=== PATIENT | male | born 1970 | race Caucasian/White ===

== ENCOUNTER 2017-08-08 18:04 | Emergency (ER) | payer BC ==
[2017-08-08 19:06] VITALS: BP 145/91
[2017-08-08 19:07] LABS: CHLORIDE,CL 99 mmol/L (101-111); SODIUM,NA 137 mmol/L (135-145)
--- NOTE | 2017-08-08 19:49 | EDM.PDOC ---
ED HPI GENERAL MEDICAL PROBLEM - General Chief Complaint: Lower Extremity Injury/Pain Stated Complaint: LEG PAIN [phone] Time Seen by Provider: 08/08/17 19:00 Source of Information: Reports: Patient History Limitations: Reports: No Limitations - History of Present Illness INITIAL COMMENTS - FREE TEXT/NARRATIVE: ED with complaint of left leg pain and swelling, started this am and wosening through day, pain intermittent at times, worse with weight bearing. Patient hx of DM, not on any medication currently due to side effects, Notes blood sugars when he checks have been 300's. Drives semi daily. Family hx Factor V deficiency. No previous blood clots himself. On no current medications, No respiratory symptoms. Hx hypertension but does not check blood pressures. Onset: Today Left Lower Leg Pain Score (Numeric/FACES): 6 - Related Data Allergies Allergy/AdvReac Type Severity Reaction Status Date / Time No Known Allergies Allergy Verified 08/08/17 18:28 Home Meds: Home Meds NK [No Known Home Meds] 0 mg PO DAILY 08/08/17 [History] Past Medical History HEENT History: Reports: Impaired Vision Cardiovascular History: Reports: Hypertension Musculoskeletal History: Reports: Fracture Endocrine/Metabolic History: Reports: Diabetes, Type II Social & Family History - Family History Family Medical History: Noncontributory - Tobacco Use Smoking Status *Q: Never Smoker Second Hand Smoke Exposure: No - Caffeine Use Caffeine Use: Reports: Coffee - Recreational Drug Use Recreational Drug Use: No Review of Systems - Review of Systems Review Of Systems: ROS reveals no pertinent complaints other than HPI. ED EXAM, GENERAL - Physical Exam Exam: See Below Exam Limited By: No Limitations General Appearance: Alert, No Apparent Distress Eye Exam: Bilateral Eye: EOMI Ears: Normal External Exam, Hearing Grossly Normal Nose: Normal Inspection Throat/Mouth: Normal Inspection Head: Atraumatic, Normocephalic Neck: Normal Inspection, Full Range of Motion Respiratory/Chest: No Respiratory Distress, Lungs Clear, Normal Breath Sounds Cardiovascular: Normal Peripheral Pulses, Regular Rate, Rhythm Peripheral Pulses: 2+: Dorsalis Pedis (L) GI/Abdominal: Normal Bowel Sounds, Soft. No: Tender Back Exam: Full Range of Motion Extremities: Normal Range of Motion, Umair's Sign, Leg Pain, Other (right calf 16" left calf 16.6"). No: Pallor, Redness Neurological: Alert, Oriented, Normal Cognition Psychiatric: Normal Affect, Normal Mood Skin Exam: Warm, Dry, Intact, Normal Color Course - Vital Signs Last Recorded V/S: Last Vital Signs Temp 98.0 F 08/08/17 19:05 Pulse 87 08/08/17 19:05 Resp 18 08/08/17 19:05 BP 145/91 H 08/08/17 19:05 Pulse Ox 97 08/08/17 19:05 - Orders/Labs/Meds Orders: Active Orders 24 hr Category Date Time Status UA W/MICROSCOPIC [URIN] Stat Lab 08/08/17 19:12 Uncollected Labs: Laboratory Tests 08/08/17 08/08/17 08/08/17 Range/Units 18:44 18:44 18:44 WBC 8.4 (5.0-10.0) 10^3/uL RBC 4.78 (4.6-6.2) 10^6/uL Hgb 17.0 (14.0-18.0) g/dL Hct 46.0 (40.0-54.0) % MCV 96.2 (80-100) fL MCH 35.6 H (27.0-34.0) pg MCHC 37.0 H (33.0-35.0) g/dL Plt Count 146 L (150-450) 10^3/uL Neut % (Auto) 63.5 (42.2-75.2) % Lymph % (Auto) 26.5 (20.5-50.1) % [place] % (Auto) 8.1 H (2-8) % Eos % (Auto) 1.4 (1.0-3.0) % Baso % (Auto) 0.5 (0.0-1.0) % PT 9.9 (9.0-12.0) SEC INR 1.0 (0.9-1.2) D-Dimer, Quantitative < 100 (0-400) ng/mL Sodium 137 (135-145) mmol/L Potassium 4.5 (3.6-5.0) mmol/L Chloride 99 L (101-111) mmol/L Carbon Dioxide 30.0 (21.0-31.0) mmol/L Anion Gap 12.5 BUN 18 (7-18) mg/dL Creatinine 0.8 (0.6-1.3) mg/dL Est Cr Clr Drug Dosing 132.72 mL/min Estimated GFR (MDRD) > 60 BUN/Creatinine Ratio 22.50 Glucose 300 H (74-105) mg/dL Calcium 9.4 (8.4-10.2) mg/dl Total Bilirubin 1.2 H (0.2-1.0) mg/dL AST 38 (10-42) IU/L ALT 59 (10-60) IU/L Alkaline Phosphatase 58 (42-121) IU/L Total Protein 6.8 (6.7-8.2) g/dl Albumin 4.2 (3.2-5.5) g/dl Globulin 2.6 Albumin/Globulin Ratio 1.62 - Re-Assessments/Exams Free Text/Narrative Re-Assessment/Exam: 08/08/17 19:50 [place] ultrasound unavailable. [facility] ER. Dr. Rai accepting of patient for further evaluation. Tx via private car. Discussion with patient and regarding concerns of DVT and importance of urgent follow up at [facility]. 08/08/17 19:52 Departure - Departure Time of Disposition: 19:44 Disposition: DC/Tfer to Acute Hospital 02 Condition: Undetermined Clinical Impression: Left leg pain, Family history of factor V Leiden mutation Hyperglycemia due to type 2 diabetes mellitus Qualifiers: Diabetes mellitus nursing home insulin use: without nursing home use Qualified Code(s ): E11.65 - Type 2 diabetes mellitus with hyperglycemia - Discharge Information Instructions: Deep Vein Thrombosis Referrals: Simon Phelps DRUG ABUSE COUNSELOR [Primary Care Provider] - Forms: ED Department Discharge - My Orders Last 24 Hours: My Active Orders 08/08/17 19:12 UA W/MICROSCOPIC [URIN] Stat - Assessment/Plan Last 24 Hours: My Active Orders 08/08/17 19:12 UA W/MICROSCOPIC [URIN] Stat
== END 2017-08-08 20:06 ==
LOC: DL.ED 18:04
DX: M79.662 Pain in left lower leg (principal); E11.65 Type 2 diabetes mellitus with hyperglycemia
CPT/HCPCS: 36415; 80053; 85025; 85379; 85610; 99284

== ENCOUNTER 2017-11-13 18:56 | Emergency (ER) | payer BC ==
--- NOTE | 2017-11-13 20:16 | EDM.PDOC ---
ED HPI GENERAL MEDICAL PROBLEM - General Chief Complaint: Upper Extremity Injury/Pain Stated Complaint: INJURED L HAND [phone] Time Seen by Provider: 11/13/17 19:55 Source of Information: Reports: Patient History Limitations: Reports: No Limitations - History of Present Illness INITIAL COMMENTS - FREE TEXT/NARRATIVE: injured left hand while working on grain bin few days ago, . continued pain and 4th knuckle looks "funny" Duration: Day(s): Location: Reports: Upper Extremity, Left Left Hand Pain Score (Numeric/FACES): 4 - Related Data Allergies Allergy/AdvReac Type Severity Reaction Status Date / Time No Known Allergies Allergy Verified 11/13/17 20:16 Home Meds: Home Meds NK [No Known Home Meds] 0 mg PO DAILY 08/08/17 [History] Past Medical History HEENT History: Reports: Impaired Vision Cardiovascular History: Reports: Hypertension Musculoskeletal History: Reports: Fracture Endocrine/Metabolic History: Reports: Diabetes, Type II Social & Family History - Family History Family Medical History: Noncontributory - Tobacco Use Smoking Status *Q: Never Smoker Second Hand Smoke Exposure: No - Caffeine Use Caffeine Use: Reports: Coffee - Recreational Drug Use Recreational Drug Use: No Review of Systems - Review of Systems Review Of Systems: ROS reveals no pertinent complaints other than HPI. ED EXAM, GENERAL - Physical Exam Exam: See Below Exam Limited By: No Limitations General Appearance: Alert, No Apparent Distress Ears: Normal External Exam Nose: Normal Inspection Throat/Mouth: Normal Inspection Head: Atraumatic, Normocephalic Neck: Normal Inspection Respiratory/Chest: No Respiratory Distress Cardiovascular: Regular Rate, Rhythm Extremities: Other (mild swelling to left hand, no gross deformity. mild tenderness with palpation over 4th metacarpal, 3mm abrasion to left 2nd distal metacarpal. ) Neurological: Alert, Oriented, Normal Cognition Psychiatric: Normal Affect, Normal Mood Skin Exam: Warm, Dry, Intact ED TRAUMA EXTREMITY PROCEDURES - Splinting Left Upper Extremity Splint Site: left hand Pre-Procedure NV Status: Normal Post-Procedure NV Status: Normal Splint Material: Metal Splint Design: Volar Provider Post-Splint Application NV Check: NV Status Normal, Good Position Complications: No Course - Vital Signs Last Recorded V/S: Last Vital Signs Temp 98.4 F 11/13/17 20:13 Pulse 101 H 11/13/17 20:13 Resp 18 11/13/17 20:13 BP 161/92 H 11/13/17 20:19 Pulse Ox 95 11/13/17 20:13 - Radiology Interpretation Free Text/Narrative:: Left hand xray: oblique fracture 4th metacarpal (original VRad reading was negative.) Departure - Departure Time of Disposition: 20:12 Disposition: Home, Self-Care 01 Condition: Good Clinical Impression: Fracture of metacarpal bone Qualifiers: Encounter type: initial encounter Metacarpal bone: fourth Fracture type: closed Metacarpal location: shaft Fracture alignment: nondisplaced Laterality: left Qualified Code(s): S62.355A - Nondisplaced fracture of shaft of fourth metacarpal bone, left hand, initial encounter for closed fracture - Discharge Information Instructions: Metacarpal Fracture, [id number] Referrals: Simon Phelps NP [Primary Care Provider] - Forms: ED Department Discharge Additional Instructions: tylenol or ibuprofen for discomfort follow up in one week if continued pain for re-xray of hand metal splint to hand, no heavy lifting
[2017-11-13 20:19] VITALS: BP 161/92
== END 2017-11-13 20:22 | disposition home or self-care (01) ==
LOC: DL.ED 18:56
DX: S62.355A Nondisplaced fracture of shaft of fourth metacarpal bone, left hand, initial encounter for closed fracture (principal); I10 Essential (primary) hypertension; E11.9 Type 2 diabetes mellitus without complications; Z79.899 Other long term (current) drug therapy; W22.8XXA Striking against or struck by other objects, initial encounter; Y93.89 Activity, other specified; Y99.0 Civilian activity done for income or pay
CPT/HCPCS: 29125; 73130-LT; 99283

== ENCOUNTER 2017-12-28 12:04 | Emergency (ER) | payer BC ==
[2017-12-28 13:25] VITALS: BP 169/91
[2017-12-28 13:40] LABS: CHLORIDE,CL 100 mmol/L (101-111); SODIUM,NA 135 mmol/L (135-145)
--- NOTE | 2017-12-28 14:21 | EDM.PDOC ---
ED HPI GENERAL MEDICAL PROBLEM - General Chief Complaint: Lower Extremity Injury/Pain Stated Complaint: [id number] SWELLING IN LEFT LEG Time Seen by Provider: 12/28/17 13:48 Source of Information: Reports: Patient, RN, RN Notes Reviewed History Limitations: Reports: No Limitations - History of Present Illness INITIAL COMMENTS - FREE TEXT/NARRATIVE: Pt presents to the ER with c/o a wound to the bottom of his foot with pain radiating up the left leg. The wound has been there for about 3 months he states. He states he has seen podiatry for the wound on his foot, but has not had follow up. He states the pain radiating up the leg began yesterday. He states he has noticed more swelling and redness around the wound and the pain has been radiating up the leg. Pt denies fever or chills, N/V/D, chest pains, or SOB. Onset: Gradual Left Leg Pain Score (Numeric/FACES): 9 - Related Data Allergies Allergy/AdvReac Type Severity Reaction Status Date / Time No Known Allergies Allergy Verified 11/13/17 20:16 Home Meds: Home Meds Fenofibrate Nanocrystallized [Fenofibrate] 145 mg PO DAILY 12/28/17 [History] Gabapentin [Neurontin] 300 mg PO TID 12/28/17 [History] Levothyroxine 25 mcg PO DAILY 12/28/17 [History] Lisinopril 10 mg PO DAILY 12/28/17 [History] atorvaSTATin Calcium [Atorvastatin Calcium] 20 mg PO DAILY 12/28/17 [History] glipiZIDE [Glucotrol XL] 10 mg PO DAILY 12/28/17 [History] metFORMIN HCl [Metformin HCl] 500 mg PO BID 12/28/17 [History] Past Medical History HEENT History: Reports: Impaired Vision Cardiovascular History: Reports: Hypertension Musculoskeletal History: Reports: Fracture Endocrine/Metabolic History: Reports: Diabetes, Type II Hematologic History: Reports: None Social & Family History - Family History Family Medical History: Noncontributory - Tobacco Use Smoking Status *Q: Never Smoker Second Hand Smoke Exposure: No - Caffeine Use Caffeine Use: Reports: None - Recreational Drug Use Recreational Drug Use: No Review of Systems - Review of Systems Review Of Systems: ROS reveals no pertinent complaints other than HPI. ED EXAM, GENERAL - Physical Exam Exam: See Below Exam Limited By: No Limitations General Appearance: Alert, WD/WN, No Apparent Distress Eye Exam: Bilateral Eye: EOMI, Normal Inspection Ears: Normal External Exam, Hearing Grossly Normal Nose: Normal Inspection Throat/Mouth: Normal Inspection, Normal Voice, No Airway Compromise Head: Atraumatic, Normocephalic Neck: Normal Inspection, Supple, Non-Tender, Full Range of Motion Respiratory/Chest: No Respiratory Distress, Lungs Clear, Normal Breath Sounds, No Accessory Muscle Use, Chest Non-Tender Cardiovascular: Normal Peripheral Pulses, Regular Rate, Rhythm, No Edema, No Gallop, No JVD, No Murmur, No Rub Peripheral Pulses: 2+: Radial (L), Radial (R), Dorsalis Pedis (L), Dorsalis Pedis (R) GI/Abdominal: Normal Bowel Sounds, Soft, Non-Tender, No Organomegaly, No Distention, No Abnormal Bruit, No Mass (Male) Exam: Deferred Rectal (Males) Exam: Deferred Back Exam: Normal Inspection, Full Range of Motion, NT Extremities: Normal Inspection, Normal Range of Motion, Non-Tender, No Pedal Edema, Normal Capillary Refill, Leg Pain (left leg painful from the foot up the back of the left calf) Neurological: Alert, Oriented, CN II-XII Intact, Normal Cognition, Normal Gait, Normal Reflexes, Sensory/Motor Deficit (diabetic neuropathy, numbness to the feet) Psychiatric: Normal Affect, Normal Mood Skin Exam: Warm, Dry, No Rash, Wound/Incision (quarter sized wound with dry hard callous surrounding. Necrotic odor, and small amounts of black necrotic tissue noted within the wound. ) Lymphatic: No Adenopathy ED TRAUMA EXTREMITY PROCEDURES - Additional/Other Procedure(s) Other (Free Text) Procedure(s): Calloused area around the wound was debrided with a 15 scalpel. Course - Vital Signs Last Recorded V/S: Last Vital Signs Temp 98.7 F 12/28/17 13:20 Pulse 110 H 12/28/17 13:20 Resp 12 12/28/17 13:20 BP 169/91 H 12/28/17 13:20 Pulse Ox 97 12/28/17 13:20 - Orders/Labs/Meds Labs: Laboratory Tests 12/28/17 12/28/17 Range/Units 13:13 13:13 WBC 11.3 H (5.0-10.0) 10^3/uL RBC 5.19 (4.6-6.2) 10^6/uL Hgb 18.0 (14.0-18.0) g/dL Hct 49.5 (40.0-54.0) % MCV 95.4 (80-100) fL MCH 34.7 H (27.0-34.0) pg MCHC 36.4 H (33.0-35.0) g/dL Plt Count 166 (150-450) 10^3/uL Neut % (Auto) 80.0 H (42.2-75.2) % Lymph % (Auto) 11.4 L (20.5-50.1) % [place] % (Auto) 7.9 (2-8) % Eos % (Auto) 0.5 L (1.0-3.0) % Baso % (Auto) 0.2 (0.0-1.0) % Sodium 135 (135-145) mmol/L Potassium 4.3 (3.6-5.0) mmol/L Chloride 100 L (101-111) mmol/L Carbon Dioxide 28.0 (21.0-31.0) mmol/L Anion Gap 11.3 BUN 12 (7-18) mg/dL Creatinine 0.7 (0.6-1.3) mg/dL Est Cr Clr Drug Dosing 151.68 mL/min Estimated GFR (MDRD) > 60 BUN/Creatinine Ratio 17.14 Glucose 247 H (74-105) mg/dL Calcium 9.2 (8.4-10.2) mg/dl Total Bilirubin 1.9 H (0.2-1.0) mg/dL AST 33 (10-42) IU/L ALT 49 (10-60) IU/L Alkaline Phosphatase 55 (42-121) IU/L Total Protein 7.6 (6.7-8.2) g/dl Albumin 4.2 (3.2-5.5) g/dl Globulin 3.4 Albumin/Globulin Ratio 1.24 - Radiology Interpretation Free Text/Narrative:: left foot xray: IMPRESSION: Normal left foot x-rays. Thank you for allowing us to participate in the care of your patient. Dictated and Authenticated by: Abi Frost MD 12/28/2017 2:00 PM Central Time ([place] & [place]) See Rad report Departure - Departure Time of Disposition: 14:19 Disposition: Home, Self-Care 01 Condition: Fair Clinical Impression: Diabetic foot ulcer Qualifiers: Diabetic foot ulcer location: other Diabetes mellitus type: type 2 Laterality: left Non-pressure ulcer stage: with necrosis of muscle Qualified Code(s): E11.621 - Type 2 diabetes mellitus with foot ulcer - Discharge Information Instructions: Diabetes and Foot Care, Diabetes Mellitus and Skin Care, Type 2 Diabetes Mellitus, Self Care, Adult, [id number] Referrals: Simon Phelps NP [Primary Care Provider] - Forms: ED Department Discharge Additional Instructions: Follow up with your primary care facility Make an appointment to be seen by podiatry or a diabetic foot clinic RX: Clindamycin and Augmentin
== END 2017-12-28 14:38 | disposition home or self-care (01) ==
LOC: DL.ED 12:04
DX: E11.621 Type 2 diabetes mellitus with foot ulcer (principal); I10 Essential (primary) hypertension; Z79.84 Long term (current) use of oral hypoglycemic drugs; Z79.899 Other long term (current) drug therapy
CPT/HCPCS: 36415; 73630-LT; 80053; 85025; 99282

== ENCOUNTER 2018-02-08 08:22 | Emergency (ER) | payer BC ==
--- NOTE | 2018-02-08 09:30 | EDM.PDOC ---
ED HPI GENERAL MEDICAL PROBLEM - General Chief Complaint: Lower Extremity Injury/Pain Stated Complaint: [id number] LEFT LEG BURNING Time Seen by Provider: 02/08/18 09:20 Source of Information: Reports: Patient History Limitations: Reports: No Limitations - History of Present Illness INITIAL COMMENTS - FREE TEXT/NARRATIVE: This 47 yo male patient reports to the ED with left leg pain and left great toe erythema. The patient reports he has seen podiatry (2-3 weeks ago) and has been on antibiotics (2 weeks ago), but continues to have problems. The patient reports he noticed increased swelling and pain 2 days ago. Onset Date: 02/07/18 Duration: Constant, Getting Worse Location: Reports: Lower Extremity, Left Quality: Reports: Ache, Burning, Sharp Severity: Severe Improves with: Reports: None Worsens with: Reports: None Context: Reports: Other Associated Symptoms: Reports: No Other Symptoms Left Leg Pain Score (Numeric/FACES): 8 - Related Data Allergies Allergy/AdvReac Type Severity Reaction Status Date / Time No Known Allergies Allergy Verified 02/08/18 10:01 Home Meds: Home Meds Fenofibrate Nanocrystallized [Fenofibrate] 145 mg PO DAILY 12/28/17 [History] Gabapentin [Neurontin] 300 mg PO TID 12/28/17 [History] Levothyroxine 25 mcg PO DAILY 12/28/17 [History] Lisinopril 10 mg PO DAILY 12/28/17 [History] atorvaSTATin Calcium [Atorvastatin Calcium] 20 mg PO DAILY 12/28/17 [History] glipiZIDE [Glucotrol XL] 10 mg PO DAILY 12/28/17 [History] metFORMIN HCl [Metformin HCl] 500 mg PO BID 12/28/17 [History] Past Medical History HEENT History: Reports: Impaired Vision Cardiovascular History: Reports: Hypertension Musculoskeletal History: Reports: Fracture Endocrine/Metabolic History: Reports: Diabetes, Type II Hematologic History: Reports: None Social & Family History - Family History Family Medical History: Noncontributory - Caffeine Use Caffeine Use: Reports: None Review of Systems - Review of Systems Review Of Systems: ROS reveals no pertinent complaints other than HPI. ED EXAM, GENERAL - Physical Exam Exam: See Below Exam Limited By: No Limitations General Appearance: Alert, WD/WN, Moderate Distress Eye Exam: Bilateral Eye: EOMI, Normal Inspection, PERRL Ears: Normal External Exam, Normal Canal, Hearing Grossly Normal, Normal TMs Nose: Normal Inspection, Normal Mucosa, No Blood Throat/Mouth: Normal Inspection, Normal Lips, Normal Teeth, Normal Gums, Normal Oropharynx, Normal Voice, No Airway Compromise Head: Atraumatic, Normocephalic Neck: Normal Inspection, Supple, Non-Tender, Full Range of Motion Respiratory/Chest: No Respiratory Distress, Lungs Clear, Normal Breath Sounds, No Accessory Muscle Use, Chest Non-Tender Cardiovascular: Normal Peripheral Pulses, Regular Rate, Rhythm, No Edema, No Gallop, No JVD, No Murmur, No Rub GI/Abdominal: Normal Bowel Sounds, Soft, Non-Tender, No Organomegaly, No Distention, No Abnormal Bruit, No Mass (Male) Exam: Deferred Rectal (Males) Exam: Deferred Extremities: Normal Range of Motion, Normal Capillary Refill, Redness (left great toe (ulcer on plantar surface as well as on great toe phalanx) with erythema of great toe through MTP joint.) Neurological: Alert, Oriented, CN II-XII Intact, Normal Cognition Psychiatric: Normal Affect, Normal Mood Skin Exam: Erythema (left great toe ) Lymphatic: No Adenopathy Course - Vital Signs Last Recorded V/S: Last Vital Signs Temp 37.2 C 02/08/18 09:05 Pulse 104 H 02/08/18 09:05 Resp 16 02/08/18 09:05 BP 150/93 H 02/08/18 09:05 Pulse Ox 99 02/08/18 09:05 - Orders/Labs/Meds Orders: Active Orders 24 hr Category Date Time Status CULTURE BLOOD [BC] Stat Lab 02/08/18 09:38 Received Vancomycin 2 gm Med 02/08/18 11:06 Ordered Sodium Chloride 0.9% [Normal Saline] 500 ml IV ONETIME Medication Orders Vancomycin HCl 2 gm/ Sodium (Chloride) 500 mls @ 334 mls/hr IV ONETIME ONE Stop: 02/08/18 12:35 Last Admin: 02/08/18 11:23 Dose: 334 mls/hr Labs: Laboratory Tests 02/08/18 02/08/18 02/08/18 Range/Units 09:38 09:38 09:38 WBC 11.3 H (5.0-10.0) 10^3/uL RBC 4.60 (4.6-6.2) 10^6/uL Hgb 16.2 D (14.0-18.0) g/dL Hct 43.8 (40.0-54.0) % MCV 95.2 (80-100) fL MCH 35.2 H (27.0-34.0) pg MCHC 37.0 H (33.0-35.0) g/dL Plt Count 164 (150-450) 10^3/uL Neut % (Auto) 80.2 H (42.2-75.2) % Lymph % (Auto) 9.7 L (20.5-50.1) % [place] % (Auto) 9.3 H (2-8) % Eos % (Auto) 0.6 L (1.0-3.0) % Baso % (Auto) 0.2 (0.0-1.0) % Sodium 135 L (138-146) mmol/L Potassium 3.9 (3.5-4.9) mmol/L Chloride 97 L (98-109) mmol/L Carbon Dioxide 29 (24-29) mmol/L Anion Gap 12.9 BUN 13 (8-26) mg/dL Creatinine 0.8 (0.6-1.3) mg/dL Est Cr Clr Drug Dosing TNP Estimated GFR (MDRD) > 60 BUN/Creatinine Ratio 16.25 Glucose 316 H (70-105) mg/dL Lactic Acid 1.2 (0.5-2.2) mmol/L Calcium 1.1 Total Bilirubin 1.8 H (0.2-1.0) mg/dL AST 23 (10-42) IU/L ALT 29 (10-60) IU/L Alkaline Phosphatase 64 (42-121) IU/L Total Protein 6.9 (6.7-8.2) g/dl Albumin 3.6 (3.2-5.5) g/dl Globulin 3.3 Albumin/Globulin Ratio 1.09 Meds: Medications Generic Name Dose Route Start Last Admin Trade Name Freq PRN Reason Stop Dose Admin Vancomycin HCl 2 gm/ Sodium 500 mls @ 334 mls/hr 02/08/18 11:06 02/08/18 11: 23 Chloride IV 02/08/18 12:35 334 mls/hr ONETIME ONE Administration Departure - Departure Time of Disposition: 12:06 Disposition: Home, Self-Care 01 Condition: Fair Clinical Impression: Diabetic foot ulcer Qualifiers: Diabetic foot ulcer location: other Diabetes mellitus type: type 2 Laterality: left Non-pressure ulcer stage: with necrosis of muscle Qualified Code(s): E11.621 - Type 2 diabetes mellitus with foot ulcer - Discharge Information Instructions: Diabetes Mellitus and Foot Care, Cellulitis, Adult, [id number] Forms: ED Department Discharge Care Plan Goals: The patient was advised of the examination, lab and x-ray results during the visit. The patient was given an IV dose of Vancomycin while in the ED. The patient was discharged with a script for Keflex (500 mg) to take 1 by mouth 4 times per day for 10 days and Bactrim DS to take 1 by mouth 2 times per day for 10 days. If the patient has any additional symptoms or concerns, the patient should follow-up with his primary care facility, with his taxicab starter or return to the emergency department. - My Orders Last 24 Hours: My Active Orders 02/08/18 09:38 CULTURE BLOOD [BC] Stat 02/08/18 11:06 Vancomycin 2 gm Sodium Chloride 0.9% [Normal Saline] 500 ml IV ONETIME - Assessment/Plan Last 24 Hours: My Active Orders 02/08/18 09:38 CULTURE BLOOD [BC] Stat 02/08/18 11:06 Vancomycin 2 gm Sodium Chloride 0.9% [Normal Saline] 500 ml IV ONETIME
[2018-02-08 09:50] LABS: CHLORIDE,CL 97 mmol/L (98-109); SODIUM,NA 135 mmol/L (138-146)
[2018-02-08 10:02] VITALS: BP 150/93
--- NOTE | 2018-02-08 10:15 | CR ---
Clinical history: 47-year-old diabetic male with "erythema" great toe. Interpretation: *Pronounced soft tissue swelling and what appears to be subcutaneous air (ulcer?). Atavistic first cuneiform minimal reactive arthritic change. No current signs of osteomyelitis. No foreign bodies, inflammatory periostitis, left foot fracture or dislocation. CONCLUSION: Abnormal great toe (see above)
[2018-02-08] MEDS: Vancomycin 2 GM in Sodium Chloride 0.9% 500 ML IV ONE (11:23)
== END 2018-02-08 13:01 | disposition home or self-care (01) ==
LOC: DL.ED 08:22
DX: E11.621 Type 2 diabetes mellitus with foot ulcer (principal); L97.523 Non-pressure chronic ulcer of other part of left foot with necrosis of muscle; I10 Essential (primary) hypertension; Z79.899 Other long term (current) drug therapy
CPT/HCPCS: 36415; 73630; 80053; 83605; 85025; 87040; 96365; 96366; 99284; J3370; J7040

== ENCOUNTER 2018-02-11 14:37 | Emergency (ER) | payer BC ==
--- NOTE | 2018-02-11 14:57 | EDM.PDOC ---
ED HPI GENERAL MEDICAL PROBLEM - General Chief Complaint: Lower Extremity Injury/Pain Stated Complaint: LEFT FOOT Time Seen by Provider: 02/11/18 14:57 Source of Information: Reports: Patient, Old Records, RN, RN Notes Reviewed History Limitations: Reports: No Limitations - History of Present Illness INITIAL COMMENTS - FREE TEXT/NARRATIVE: Pt c/o infection to left foot with redness, increased warmth, and pain spreading proximally from a chronic non-healing ulcer at the medial left MTPJ. Pt denies fever or chills. Yesterday a blister formed over the ulcer and today it popped and had foul smelling purulent drainage. Pt has seen a post anesthesia care unit nurse, but states the treatment hasn't helped. He has an appointment with a specialist in [place] 2 days from now. Onset: Other (Approx. 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: Other Medication(s) (Cephalexin and Bactrim) Left Feet Pain Score (Numeric/FACES): 7 - Related Data Allergies Allergy/AdvReac Type Severity Reaction Status Date / Time No Known Allergies Allergy Verified 02/11/18 14:41 Home Meds: Home Meds Fenofibrate Nanocrystallized [Fenofibrate] 145 mg PO DAILY 12/28/17 [History] Gabapentin [Neurontin] 300 mg PO TID 12/28/17 [History] Levothyroxine 25 mcg PO DAILY 12/28/17 [History] Lisinopril 10 mg PO DAILY 12/28/17 [History] atorvaSTATin Calcium [Atorvastatin Calcium] 20 mg PO DAILY 12/28/17 [History] glipiZIDE [Glucotrol XL] 10 mg PO DAILY 12/28/17 [History] metFORMIN HCl [Metformin HCl] 500 mg PO BID 12/28/17 [History] Past Medical History HEENT History: Reports: Impaired Vision Cardiovascular History: Reports: Hypertension Musculoskeletal History: Reports: Fracture Endocrine/Metabolic History: Reports: Diabetes, Type II Hematologic History: Reports: None Dermatologic History: Reports: Decubitus Ulcer (diabetic pressure ulcer left foot) Social & Family History - Family History Family Medical History: Noncontributory - Tobacco Use Smoking Status *Q: Never Smoker Second Hand Smoke Exposure: No - Caffeine Use Caffeine Use: Reports: None - Recreational Drug Use Recreational Drug Use: No - Living Situation & Occupation Living situation: Reports: , with Family Occupation: Employed Review of Systems - Review of Systems Review Of Systems: ROS reveals no pertinent complaints other than HPI. ED EXAM, GENERAL - Physical Exam Exam: See Below Exam Limited By: No Limitations General Appearance: Alert, WD/WN, No Apparent Distress Head: Atraumatic, Normocephalic Respiratory/Chest: No Respiratory Distress, Lungs Clear, Normal Breath Sounds, No Accessory Muscle Use, Chest Non-Tender Cardiovascular: Regular Rate, Rhythm Peripheral Pulses: 0: Posterior Tibial (L), Posterior Tibial (R), 1+: Dorsalis Pedis (L), Dorsalis Pedis (R) Extremities: Normal Capillary Refill, Joint Swelling (left 1st TMPJ and adj. soft tissue), Increased Warmth (left foot), Redness (left medial foot), Other ( 3 to 4cm diameter chronic appearing ulcer on left medial foot overlying the 1st MTPJ, with foul smelling purulent drainage) Neurological: Alert, Oriented, No Motor/Sensory Deficits Psychiatric: Normal Mood Course - Vital Signs Last Recorded V/S: Last Vital Signs Temp 36.1 C 02/11/18 14:41 Pulse 100 02/11/18 14:41 Resp 18 02/11/18 14:41 BP 166/94 H 02/11/18 14:41 Pulse Ox 97 02/11/18 14:41 - Orders/Labs/Meds Orders: Active Orders 24 hr Category Date Time Status Peripheral IV Care [RC] . DIRECTED Care 02/11/18 15:10 Active CULTURE BLOOD [BC] Stat Lab 02/11/18 15:21 Received CULTURE BLOOD [BC] Stat Lab 02/11/18 15:24 Received CULTURE WOUND + SMEAR [RM] Stat Lab 02/11/18 15:09 Results Sodium Chloride 0.9% [Saline Flush] Med 02/11/18 15:10 Active 10 ml FLUSH ASDIRECTED PRN Blood Culture x2 Reflex Set [OM.PC] Stat Oth 02/11/18 15:10 Ordered Peripheral IV Insertion Adult [OM.PC] Stat Oth 02/11/18 15:10 Ordered Medication Orders Sodium Chloride (Saline Flush) 10 ml FLUSH ASDIRECTED PRN PRN Reason: Keep Vein Open Last Admin: 02/11/18 15:34 Dose: 10 ml Labs: Laboratory Tests 02/11/18 02/11/18 02/11/18 Range/Units 15:21 15:21 15:21 WBC 14.1 H (5.0-10.0) 10^3/uL RBC 4.86 (4.6-6.2) 10^6/uL Hgb 17.0 (14.0-18.0) g/dL Hct 45.7 (40.0-54.0) % MCV 94.0 (80-100) fL MCH 35.0 H (27.0-34.0) pg MCHC 37.2 H (33.0-35.0) g/dL Plt Count 236 (150-450) 10^3/uL Neut % (Auto) 79.9 H (42.2-75.2) % Lymph % (Auto) 9.5 L (20.5-50.1) % [place] % (Auto) 8.8 H (2-8) % Eos % (Auto) 1.6 (1.0-3.0) % Baso % (Auto) 0.2 (0.0-1.0) % Sodium 133 L (135-145) mmol/L Potassium 3.1 L (3.6-5.0) mmol/L Chloride 93 L (101-111) mmol/L Carbon Dioxide 28.0 (21.0-31.0) mmol/L Anion Gap 15.1 BUN 17 (7-18) mg/dL Creatinine 0.8 (0.6-1.3) mg/dL Est Cr Clr Drug Dosing 132.72 mL/min Estimated GFR (MDRD) > 60 BUN/Creatinine Ratio 21.25 Glucose 231 H (74-105) mg/dL Calcium 9.1 (8.4-10.2) mg/dl Total Bilirubin 1.1 H (0.2-1.0) mg/dL AST 30 (10-42) IU/L ALT 28 (10-60) IU/L Alkaline Phosphatase 74 (42-121) IU/L C-Reactive Protein 18.7 H (0.0-1.3) mg/dL Total Protein 7.9 (6.7-8.2) g/dl Albumin 3.6 (3.2-5.5) g/dl Globulin 4.3 Albumin/Globulin Ratio 0.84 Meds: Medications Generic Name Dose Route Start Last Admin Trade Name Freq PRN Reason Stop Dose Admin Sodium Chloride 10 ml 02/11/18 15:10 02/11/18 15:34 Saline Flush FLUSH 10 ml ASDIRECTED PRN Administration Keep Vein Open Discontinued Medications Generic Name Dose Route Start Last Admin Trade Name Freq PRN Reason Stop Dose Admin Hydrocodone Bitart/Acetaminophen 1 tab 02/11/18 15:11 02/11/18 15:34 [place] 325-10 Mg PO 02/11/18 15:12 1 tab ONETIME ONE Administration Vancomycin HCl 1.5 gm/ Sodium 500 mls @ 334 mls/hr 02/11/18 15:11 02/11/18 15 :34 Chloride IV 02/11/18 16:40 334 mls/hr ONETIME ONE Administration Departure - Departure Time of Disposition: 16:53 Disposition: DC/Tfer to Acute Hospital 02 Condition: Serious Clinical Impression: Cellulitis of left foot Diabetic foot ulcer Qualifiers: Diabetic foot ulcer location: other Diabetes mellitus type: type 2 Laterality: left Non-pressure ulcer stage: with other severity Qualified Code(s): E11.621 - Type 2 diabetes mellitus with foot ulcer; L97.528 - Non-pressure chronic ulcer of other part of left foot with other specified severity Hyperglycemia due to type 2 diabetes mellitus Qualifiers: 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 DIRECTED Sodium Chloride 0.9% [Saline Flush] 10 ml FLUSH ASDIRECTED PRN Blood Culture x2 Reflex Set [OM.PC] Stat Peripheral IV Insertion Adult [OM.PC] Stat 02/11/18 15:21 CULTURE BLOOD [BC] Stat 02/11/18 15:24 CULTURE BLOOD [BC] Stat - Assessment/Plan Last 24 Hours: My Active Orders 02/11/18 15:09 CULTURE WOUND + SMEAR [RM] Stat 02/11/18 15:10 Peripheral IV Care [RC] . DIRECTED Sodium Chloride 0.9% [Saline Flush] 10 ml FLUSH ASDIRECTED PRN Blood Culture x2 Reflex Set [OM.PC] Stat Peripheral IV Insertion Adult [OM.PC] Stat 02/11/18 15:21 CULTURE BLOOD [BC] Stat 02/11/18 15:24 CULTURE BLOOD [BC] Stat
[2018-02-11 15:10] VITALS: BP 166/94
[2018-02-11] MEDS ORDERED: Sodium Chloride 0.9% 10 ML Syringe FLUSH PRN (15:10)
[2018-02-11] MEDS ORDERED: Acetaminophen/HYDROcodone 325-10 MG Tab PO ONE (15:11)
[2018-02-11] MEDS ORDERED: Vancomycin 1.5 GM in Sodium Chloride 0.9% 500 ML IV ONE (15:11)
[2018-02-11 15:49] LABS: CHLORIDE,CL 93 mmol/L (101-111); SODIUM,NA 133 mmol/L (135-145)
== END 2018-02-11 17:05 ==
LOC: DL.ED 14:37
DX: E11.621 Type 2 diabetes mellitus with foot ulcer (principal); L97.528 Non-pressure chronic ulcer of other part of left foot with other specified severity; E11.65 Type 2 diabetes mellitus with hyperglycemia; L03.116 Cellulitis of left lower limb; I10 Essential (primary) hypertension; Z79.899 Other long term (current) drug therapy; Z79.84 Long term (current) use of oral hypoglycemic drugs
CPT/HCPCS: 36415; 80053; 85025; 86140; 87040; 87070; 87205; 96365; 99284; A9270; J3370; J7040; J7050; 87077; 87186

== ENCOUNTER 2020-01-31 15:23 | Emergency (ER) | payer BC ==
[2020-01-31 15:34] VITALS: BP 119/70; PULSE 109
[2020-01-31] MEDS ORDERED: Sodium Chloride 0.9% 10 ML Syringe FLUSH PRN (15:45)
[2020-01-31] MEDS ORDERED: Sodium Chloride 0.9% 1,000 ML IV ONE (15:47)
--- NOTE | 2020-01-31 16:10 | EDM.PDOC ---
ED HPI GENERAL MEDICAL PROBLEM - General Chief Complaint: General Stated Complaint: DIZZY, LIGHT HEADED, HEADACHE, STARTED YESTERDAY Time Seen by Provider: 01/31/20 15:40 Source of Information: Reports: Patient, RN, RN Notes Reviewed History Limitations: Reports: No Limitations - History of Present Illness INITIAL COMMENTS - FREE TEXT/NARRATIVE: Patient presents to ER with complaint of dizziness, lightheadedness, lethargy, muscle aches, feeling wrung out. States all symptoms began Monday evening. States he has not been eating much, has been trying to drink fluids. Patient states he has not taken any of his medications since Monday due to not feeling well. On Monday evening he did have some nausea and vomiting. Denies any fever, diarrhea, constipation, pain. Patient states he has had some chills from time to time. Denies sore throat, cough. States he does have a headache, and that his eyes hurt, but no visual disturbance. Denies any travel or known exposure to COVID-19. Onset: Gradual Onset Date: 01/29/20 Duration: Constant, Getting Worse Location: Reports: Head - Related Data Allergies Allergy/AdvReac Type Severity Reaction Status Date / Time piperacillin [From Zosyn] Allergy nausea/emes Verified 01/31/20 15:29 is tazobactam [From Zosyn] Allergy nausea/emes Verified 01/31/20 15:29 is Home Meds: Home Meds Gabapentin [Neurontin] 300 mg PO BID 12/28/17 [History] Levothyroxine 25 mcg PO DAILY 12/28/17 [History] Lisinopril 10 mg PO DAILY 12/28/17 [History] glipiZIDE [Glucotrol XL] 10 mg PO BID 12/28/17 [History] metFORMIN HCl [Metformin HCl] 500 mg PO BID 12/28/17 [History] Aspirin [Halfprin] 1 tab PO DAILY 03/08/18 [History] Sildenafil [Revatio] 20 mg PO DAILY PRN 03/08/18 [History] Past Medical History HEENT History: Reports: Impaired Vision Cardiovascular History: Reports: Hypertension Respiratory History: Reports: None Gastrointestinal History: Reports: None Genitourinary History: Reports: Acute Renal Failure Musculoskeletal History: Reports: Fracture Neurological History: Reports: None Psychiatric History: Reports: None Endocrine/Metabolic History: Reports: Diabetes, Type II Hematologic History: Reports: None Immunologic History: Reports: None Oncologic (Cancer) History: Reports: None Dermatologic History: Reports: Decubitus Ulcer - Infectious Disease History Infectious Disease History: Reports: None - Past Surgical History Head Surgeries/Procedures: Reports: None Social & Family History - Family History Family Medical History: Noncontributory - Tobacco Use Smoking Status *Q: Never Smoker Second Hand Smoke Exposure: No - Caffeine Use Caffeine Use: Reports: None - Recreational Drug Use Recreational Drug Use: No - Living Situation & Occupation Living situation: Reports: , with Family Occupation: Employed ED ROS GENERAL - Review of Systems Review Of Systems: Comprehensive ROS is negative, except as noted in HPI. ED EXAM, GENERAL - Physical Exam Exam: See Below Exam Limited By: No Limitations General Appearance: Alert, WD/WN, No Apparent Distress, Lethargic Eye Exam: Bilateral Eye: EOMI, Normal Inspection Ears: Normal External Exam, Hearing Grossly Normal Nose: Normal Inspection Throat/Mouth: Normal Inspection, Normal Voice, No Airway Compromise Head: Atraumatic, Normocephalic Neck: Normal Inspection, Supple, Non-Tender, Full Range of Motion Respiratory/Chest: No Respiratory Distress, Lungs Clear, Normal Breath Sounds, No Accessory Muscle Use, Chest Non-Tender Cardiovascular: Normal Peripheral Pulses, Regular Rate, Rhythm, No Edema, No Gallop, No JVD, No Murmur, No Rub Peripheral Pulses: 2+: Radial (L), Radial (R) GI/Abdominal: Normal Bowel Sounds, Soft, Non-Tender (Male) Exam: Deferred Rectal (Males) Exam: Deferred Back Exam: Normal Inspection, Full Range of Motion, NT Extremities: Normal Inspection, Normal Range of Motion, Non-Tender, Normal Capillary Refill, No Pedal Edema Neurological: Alert, Oriented, CN II-XII Intact, Normal Cognition, Normal Gait, Normal Reflexes, No Motor/Sensory Deficits Psychiatric: Normal Affect, Normal Mood Skin Exam: Warm, Dry, Intact, Normal Color, No Rash Lymphatic: No Adenopathy Course - Vital Signs Last Recorded V/S: Last Vital Signs Temp 97.0 F 01/31/20 15:30 Pulse 109 H 01/31/20 15:30 Resp 16 01/31/20 15:30 BP 119/70 01/31/20 15:30 Pulse Ox 97 01/31/20 15:30 Orthostatic Blood Pressure [ 75/27 Standing] Orthostatic Blood Pressure [ 124/64 Sitting] Orthostatic Blood Pressure [ 138/76 Supine] - Orders/Labs/Meds Orders: Active Orders 24 hr Category Date Time Status Blood Glucose Check, Bedside [] ONETIME Care 01/31/20 15:44 Active EKG Documentation Completion [RC] STAT Care 01/31/20 15:45 Active Peripheral IV Care [RC] . DIRECTED Care 01/31/20 15:46 Active UA RFX ELIZABETH AND CULT IF INDIC [URIN] Stat Lab 01/31/20 15:45 Ordered Sodium Chloride 0.9% [Normal Saline] 1,000 ml Med 01/31/20 15:47 Active IV .BOLUS Sodium Chloride 0.9% [Saline Flush] Med 01/31/20 15:45 Active 10 ml FLUSH ASDIRECTED PRN Peripheral IV Insertion Adult [OM.PC] Stat Oth 01/31/20 15:45 Ordered Medication Orders Sodium Chloride (Normal Saline) 1,000 mls @ 200 mls/hr IV .BOLUS ONE Stop: 01/31/20 20:46 Last Admin: 01/31/20 15:48 Dose: 200 mls/hr Sodium Chloride (Saline Flush) 10 ml FLUSH ASDIRECTED PRN PRN Reason: Keep Vein Open Last Admin: 01/31/20 15:48 Dose: 10 ml Labs: Laboratory Tests 01/31/20 01/31/20 01/31/20 Range/Units 15:43 15:43 15:43 WBC 4.7 L (5.0-10.0) 10^3/uL RBC 4.55 L (4.6-6.2) 10^6/uL Hgb 16.1 D (14.0-18.0) g/dL Hct 43.5 (40.0-54.0) % MCV 95.6 (80-100) fL MCH 35.4 H (27.0-34.0) pg MCHC 37.0 H (33.0-35.0) g/dL Plt Count 107 L (150-450) 10^3/uL Neut % (Auto) 60.1 (42.2-75.2) % Lymph % (Auto) 23.2 (20.5-50.1) % [place] % (Auto) 15.7 H (2-8) % Eos % (Auto) 0.4 L (1.0-3.0) % Baso % (Auto) 0.6 (0.0-1.0) % PT 11.0 (9.0-12.0) SEC INR 1.2 (0.9-1.2) D-Dimer, Quantitative 1570 H (0-400) ng/mL Sodium 130 L (136-145) mmol/L Potassium 3.8 (3.5-5.1) mmol/L Chloride 94 L (98-107) mmol/L Carbon Dioxide 27 (21-32) mmol/L Anion Gap 12.8 (7-13) mEq/L BUN 18 (7-18) mg/dL Creatinine 1.22 (0.70-1.30) mg/dL Est Cr Clr Drug Dosing 85.16 mL/min Estimated GFR (MDRD) > 60 BUN/Creatinine Ratio 14.8 (No establ ref range) Glucose 212 H (74-99) mg/dL Lactic Acid (0.4-2.0) mmol/L Calcium 8.3 L (8.5-10.1) mg/dL Total Bilirubin 2.7 H (0.2-1.0) mg/dL AST 128 H (15-37) U/L ALT 106 H (16-63) U/L Alkaline Phosphatase 86 (46-116) U/L Lactate Dehydrogenase (85-227) U/L Troponin I < 0.017 (0.000-0.056) ng/mL C-Reactive Protein (0.0-0.9) mg/dL Total Protein 7.2 (6.4-8.2) g/dL Albumin 3.6 (3.4-5.0) g/dL Globulin 3.6 Albumin/Globulin Ratio 1.0 Amylase (25-115) U/L Lipase (73-393) U/L Ethyl Alcohol (0) mg/dL SARS-CoV-2 RNA (RT-PCR) (NEGATIVE) 01/31/20 01/31/20 01/31/20 Range/Units 15:43 15:43 15:43 WBC (5.0-10.0) 10^3/uL RBC (4.6-6.2) 10^6/uL Hgb (14.0-18.0) g/dL Hct (40.0-54.0) % MCV (80-100) fL MCH (27.0-34.0) pg MCHC (33.0-35.0) g/dL Plt Count (150-450) 10^3/uL Neut % (Auto) (42.2-75.2) % Lymph % (Auto) (20.5-50.1) % [place] % (Auto) (2-8) % Eos % (Auto) (1.0-3.0) % Baso % (Auto) (0.0-1.0) % PT (9.0-12.0) SEC INR (0.9-1.2) D-Dimer, Quantitative (0-400) ng/mL Sodium (136-145) mmol/L Potassium (3.5-5.1) mmol/L Chloride (98-107) mmol/L Carbon Dioxide (21-32) mmol/L Anion Gap (7-13) mEq/L BUN (7-18) mg/dL Creatinine (0.70-1.30) mg/dL Est Cr Clr Drug Dosing mL/min Estimated GFR (MDRD) BUN/Creatinine Ratio (No establ ref range) Glucose (74-99) mg/dL Lactic Acid 1.6 (0.4-2.0) mmol/L Calcium (8.5-10.1) mg/dL Total Bilirubin (0.2-1.0) mg/dL AST (15-37) U/L ALT (16-63) U/L Alkaline Phosphatase (46-116) U/L Lactate Dehydrogenase 845 H (85-227) U/L Troponin I (0.000-0.056) ng/mL C-Reactive Protein 5.9 H (0.0-0.9) mg/dL Total Protein (6.4-8.2) g/dL Albumin (3.4-5.0) g/dL Globulin Albumin/Globulin Ratio Amylase 12 L (25-115) U/L Lipase 53 L (73-393) U/L Ethyl Alcohol (0) mg/dL SARS-CoV-2 RNA (RT-PCR) (NEGATIVE) 01/31/20 01/31/20 Range/Units 15:43 16:48 WBC (5.0-10.0) 10^3/uL RBC (4.6-6.2) 10^6/uL Hgb (14.0-18.0) g/dL Hct (40.0-54.0) % MCV (80-100) fL MCH (27.0-34.0) pg MCHC (33.0-35.0) g/dL Plt Count (150-450) 10^3/uL Neut % (Auto) (42.2-75.2) % Lymph % (Auto) (20.5-50.1) % [place] % (Auto) (2-8) % Eos % (Auto) (1.0-3.0) % Baso % (Auto) (0.0-1.0) % PT (9.0-12.0) SEC INR (0.9-1.2) D-Dimer, Quantitative (0-400) ng/mL Sodium (136-145) mmol/L Potassium (3.5-5.1) mmol/L Chloride (98-107) mmol/L Carbon Dioxide (21-32) mmol/L Anion Gap (7-13) mEq/L BUN (7-18) mg/dL Creatinine (0.70-1.30) mg/dL Est Cr Clr Drug Dosing mL/min Estimated GFR (MDRD) BUN/Creatinine Ratio (No establ ref range) Glucose (74-99) mg/dL Lactic Acid (0.4-2.0) mmol/L Calcium (8.5-10.1) mg/dL Total Bilirubin (0.2-1.0) mg/dL AST (15-37) U/L ALT (16-63) U/L Alkaline Phosphatase (46-116) U/L Lactate Dehydrogenase (85-227) U/L Troponin I (0.000-0.056) ng/mL C-Reactive Protein (0.0-0.9) mg/dL Total Protein (6.4-8.2) g/dL Albumin (3.4-5.0) g/dL Globulin Albumin/Globulin Ratio Amylase (25-115) U/L Lipase (73-393) U/L Ethyl Alcohol < 3 (0) mg/dL SARS-CoV-2 RNA (RT-PCR) Negative (NEGATIVE) Meds: Medications Generic Name Dose Route Start Last Admin Trade Name Freq PRN Reason Stop Dose Admin Sodium Chloride 1,000 mls @ 200 mls/hr 01/31/20 15:47 01/31/20 15:48 Normal Saline IV 01/31/20 20:46 200 mls/hr .BOLUS ONE Administration Sodium Chloride 10 ml 01/31/20 15:45 01/31/20 15:48 Saline Flush FLUSH 10 ml ASDIRECTED PRN Administration Keep Vein Open Discontinued Medications Generic Name Dose Route Start Last Admin Trade Name Ervin PRN Reason Stop Dose Admin Iopamidol 100 ml 01/31/20 17:19 01/31/20 17:24 Isovue-370 (76%) IVPUSH 01/31/20 17:20 100 ml ONETIME ONE Administration - Radiology Interpretation Free Text/Narrative:: Chest xray: FINDINGS: Lungs: Unremarkable. No consolidation. Pleural space: Unremarkable. No pleural effusion. No pneumothorax. Heart/Mediastinum: Unremarkable. No cardiomegaly. Bones/joints: Unremarkable. IMPRESSION: No acute findings. Thank you for allowing us to participate in the care of your patient. Dictated and Authenticated by: Hira Tai DO 01/31/2020 4:12 PM Central Time ([place] & [place]) Head CT wo contrast: FINDINGS: Brain: Normal. No hemorrhage. Unremarkable white matter. No mass effect. Ventricles: Normal. No ventriculomegaly. Bones/joints: Unremarkable. No acute fracture. Sinuses: Visualized sinuses are unremarkable. No fluid levels. Mastoid air cells: Visualized mastoid air cells are well aerated. Soft tissues: Unremarkable. IMPRESSION: No acute intracranial abnormality. Thank you for allowing us to participate in the care of your patient. Dictated and Authenticated by: Hira Tai DO 01/31/2020 6:19 PM Central Time ([place] & [place]) Chest CT with contrast: See rad report - Re-Assessments/Exams Free Text/Narrative Re-Assessment/Exam: 01/31/20 19:20 Patient case discussed with Dr. Carmona who refused to admit the patient here, states the patient needs to be transferred to [facility] in [place]. Patient case discussed with Dr. Kapoor at [facility] who agreed to accept the patient for transfer to [facility]. 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 Diabetes mellitus complication status: without complication Qualified Code(s): E11.9 - Type 2 diabetes mellitus without complications - Discharge Information *PRESCRIPTION DRUG MONITORING PROGRAM REVIEWED*: No *COPY OF PRESCRIPTION DRUG MONITORING REPORT IN PATIENT [place]: No Forms: ED Department Discharge, Interfacility Transfer EMTALA Sepsis Event Note - Evaluation Sepsis Screening Result: No Definite Risk - Focused Exam Vital Signs: Vital Signs Temp Pulse Resp BP Pulse Ox 01/31/20 15:30 97.0 F 109 H 16 119/70 97 Date Exam was Performed: 01/31/20 Time Exam was Performed: 19:20 - My Orders Last 24 Hours: My Active Orders 01/31/20 15:44 Blood Glucose Check, Bedside [RC] ONETIME 01/31/20 15:45 EKG Documentation Completion [RC] STAT UA RFX ELIZABETH AND CULT IF INDIC [URIN] Stat Sodium Chloride 0.9% [Saline Flush] 10 ml FLUSH ASDIRECTED PRN Peripheral IV Insertion Adult [OM.PC] Stat 01/31/20 15:46 Peripheral IV Care [RC] . DIRECTED 01/31/20 15:47 Sodium Chloride 0.9% [Normal Saline] 1,000 ml IV .BOLUS - Assessment/Plan Last 24 Hours: My Active Orders 01/31/20 15:44 Blood Glucose Check, Bedside [RC] ONETIME 01/31/20 15:45 EKG Documentation Completion [RC] STAT UA RFX ELIZABETH AND CULT IF INDIC [URIN] Stat Sodium Chloride 0.9% [Saline Flush] 10 ml FLUSH ASDIRECTED PRN Peripheral IV Insertion Adult [OM.PC] Stat 01/31/20 15:46 Peripheral IV Care [RC] . DIRECTED 01/31/20 15:47 Sodium Chloride 0.9% [Normal Saline] 1,000 ml IV .BOLUS
[2020-01-31 16:12] LABS: ANION GAP 12.8 mEq/L (7-13); CHLORIDE,CL 94 mmol/L (98-107); SODIUM,NA 130 mmol/L (136-145)
[2020-01-31] MEDS ORDERED: Iopamidol 755 Mg/ML 100 ML Bottle IVPUSH ONE (17:19)
== END 2020-01-31 19:30 ==
LOC: DL.ED 15:23
DX: E86.0 Dehydration (principal); E11.9 Type 2 diabetes mellitus without complications; I10 Essential (primary) hypertension; R79.1 Abnormal coagulation profile; R74.8 Abnormal levels of other serum enzymes; Z79.82 Long term (current) use of aspirin; Z79.84 Long term (current) use of oral hypoglycemic drugs; Z79.899 Other long term (current) drug therapy
CPT/HCPCS: 36415; 70450; 71045; 71260; 80053; 80307; 82150; 82962; 83605; 83615; 83690; 84484; 85025; 85379; 85610; 86140; 93005; 96360; 96361; 99285-25; J7030; Q9967; U0002

== ENCOUNTER 2020-02-05 10:26 | Emergency (ER) | payer BC ==
[2020-02-05 10:20] VITALS: BP 117/69; PULSE 84
--- NOTE | 2020-02-05 10:26 | EDM.PDOC ---
ED HPI GENERAL MEDICAL PROBLEM - General Stated Complaint: COMING FROM [facility] Time Seen by Provider: 02/05/20 10:10 Source of Information: Reports: Patient History Limitations: Reports: No Limitations - History of Present Illness INITIAL COMMENTS - FREE TEXT/NARRATIVE: This 49 yo male patient reports to the ED with a 1 week history of generalized weakness, lightheadedness, loss of appetite and left sided abdominal pain. The patient reports his symptoms started about 1 week ago. The patient was seen in the ED for similar symptoms last week and transferred to [facility] in [place]. The patient had lab work, a cardiac work-up, a CT of his head and a CT of his chest while in the ED. After transfer, the patient reports he had an ultrasound of his abdomen, a CT of his chest and a CT of his abdomen. The patient reports he was told there was nothing wrong with him and was discharged from [facility] 1 day after admission. The patient reports he was at the [facility] today for a telemed follow-up when he was sent to the ED due to a low blood pressure. The patient reports nothing has changed from last week, but has the feeling that there is something wrong. Onset Date: 01/29/20 Duration: Constant Location: Reports: Generalized Quality: Reports: Other Severity: Moderate Improves with: Reports: None Worsens with: Reports: None Context: Reports: Other Associated Symptoms: Reports: Malaise, Weakness - Related Data Allergies Allergy/AdvReac Type Severity Reaction Status Date / Time piperacillin [From Zosyn] Allergy nausea/emes Verified 01/31/20 15:29 is tazobactam [From Zosyn] Allergy nausea/emes Verified 01/31/20 15:29 is Home Meds: Home Meds Gabapentin [Neurontin] 300 mg PO TID 12/28/17 [History] Levothyroxine 25 mcg PO DAILY 12/28/17 [History] Lisinopril 20 mg PO DAILY 12/28/17 [History] glipiZIDE [Glucotrol XL] 10 mg PO BID 12/28/17 [History] metFORMIN HCl [Metformin HCl] 500 mg PO BIDMEALS 12/28/17 [History] Aspirin [Halfprin] 1 tab PO DAILY 03/08/18 [History] Sildenafil [Revatio] 20 mg PO DAILY PRN 03/08/18 [History] Fenofibrate Nanocrystallized [Fenofibrate] 145 mg PO DAILY 02/05/20 [History] amLODIPine Besylate [Amlodipine Besylate] 10 mg PO DAILY 02/05/20 [History] atorvaSTATin [Lipitor] 40 mg PO DAILY 02/05/20 [History] Past Medical History HEENT History: Reports: Impaired Vision Cardiovascular History: Reports: Hypertension Respiratory History: Reports: None Gastrointestinal History: Reports: None Genitourinary History: Reports: Acute Renal Failure Musculoskeletal History: Reports: Fracture Neurological History: Reports: None Psychiatric History: Reports: None Endocrine/Metabolic History: Reports: Diabetes, Type II Hematologic History: Reports: None Immunologic History: Reports: None Oncologic (Cancer) History: Reports: None Dermatologic History: Reports: Decubitus Ulcer - Infectious Disease History Infectious Disease History: Reports: None - Past Surgical History Head Surgeries/Procedures: Reports: None Social & Family History - Family History Family Medical History: Noncontributory - Caffeine Use Caffeine Use: Reports: None - Living Situation & Occupation Living situation: Reports: , with Family Occupation: Employed ED ROS GENERAL - Review of Systems Review Of Systems: Comprehensive ROS is negative, except as noted in HPI. ED EXAM, GENERAL - Physical Exam Exam: See Below Exam Limited By: No Limitations General Appearance: Alert, WD/WN, Moderate Distress Eye Exam: Bilateral Eye: EOMI, Normal Inspection, PERRL Ears: Normal External Exam, Normal Canal, Hearing Grossly Normal, Normal TMs Nose: Normal Inspection Throat/Mouth: Normal Inspection, Normal Lips, Normal Teeth, Normal Gums, Normal Oropharynx, Normal Voice, No Airway Compromise Head: Atraumatic, Normocephalic Neck: Normal Inspection, Supple, Non-Tender, Full Range of Motion Respiratory/Chest: No Respiratory Distress, Lungs Clear, Normal Breath Sounds, No Accessory Muscle Use, Chest Non-Tender Cardiovascular: Normal Peripheral Pulses, Regular Rate, Rhythm, No Edema, No Gallop, No JVD, No Murmur, No Rub GI/Abdominal: Normal Bowel Sounds, Soft, No Organomegaly, No Distention, No Abnormal Bruit, No Mass, Pelvis Stable, Tender (left lateral) (Male) Exam: Deferred Rectal (Males) Exam: Deferred Back Exam: Normal Inspection, Full Range of Motion, NT Extremities: Normal Inspection, Normal Range of Motion, Non-Tender, Normal Capillary Refill, No Pedal Edema Neurological: Alert, Oriented, CN II-XII Intact, Normal Cognition, Normal Gait, Normal Reflexes, No Motor/Sensory Deficits Psychiatric: Normal Affect, Normal Mood Skin Exam: Warm, Dry, Intact, Normal Color, No Rash Lymphatic: No Adenopathy Course - Vital Signs Last Recorded V/S: Last Vital Signs Temp 36.2 C 02/05/20 10:13 Pulse 84 02/05/20 10:13 Resp 16 02/05/20 10:13 BP 117/69 02/05/20 10:13 Pulse Ox 99 02/05/20 10:13 - Orders/Labs/Meds Orders: Active Orders 24 hr Category Date Time Status CULTURE BLOOD [BC] Stat Lab 02/05/20 11:49 Received CULTURE BLOOD [BC] Stat Lab 02/05/20 11:54 Received DRUG SCREEN URINE BIORAD [URCHEM] Stat Lab 02/05/20 10:09 Ordered UA RFX ELIZABETH AND CULT IF INDIC [URIN] Urgent Lab 02/05/20 10:09 Ordered Blood Culture x2 Reflex Set [OM.PC] Stat Oth 02/05/20 11:31 Ordered Labs: Laboratory Tests 02/05/20 02/05/20 02/05/20 Range/Units 10:22 10:22 10:22 WBC 19.1 H (5.0-10.0) 10^3/uL RBC 4.49 L (4.6-6.2) 10^6/uL Hgb 15.6 (14.0-18.0) g/dL Hct 44.1 (40.0-54.0) % MCV 98.2 (80-100) fL MCH 34.7 H (27.0-34.0) pg MCHC 35.4 H (33.0-35.0) g/dL Plt Count 131 L (150-450) 10^3/uL Eos % (Auto) 0.1 L (1.0-3.0) % Baso % (Auto) 0.4 (0.0-1.0) % Add Manual Diff Yes Neutrophils % (Manual) 23 L (42-75) % Band Neutrophils % 5 % Lymphocytes % (Manual) 59 H (20-50) % Monocytes % (Manual) 10 H (2-8) % Myelocytes % 3 Nucleated RBCs 1 /100WBC Sodium 132 L (136-145) mmol/L Potassium 3.7 (3.5-5.1) mmol/L Chloride 93 L (98-107) mmol/L Carbon Dioxide 30 (21-32) mmol/L Anion Gap 12.7 (7-13) mEq/L BUN 16 (7-18) mg/dL Creatinine 1.46 H (0.70-1.30) mg/dL Est Cr Clr Drug Dosing 71.16 mL/min Estimated GFR (MDRD) 51 BUN/Creatinine Ratio 11.0 (No establ ref range) Glucose 195 H (74-99) mg/dL Lactic Acid 1.8 (0.4-2.0) mmol/L Calcium 8.7 (8.5-10.1) mg/dL Magnesium 2.0 (1.8-2.4) mg/dL Total Bilirubin 7.4 H (0.2-1.0) mg/dL AST 278 H (15-37) U/L ALT 206 H (16-63) U/L Alkaline Phosphatase 237 H (46-116) U/L Total Protein 6.7 (6.4-8.2) g/dL Albumin 3.0 L (3.4-5.0) g/dL Globulin 3.7 Albumin/Globulin Ratio 0.81 Amylase 15 L (25-115) U/L Lipase 73 (73-393) U/L Meds: Medications Discontinued Medications Generic Name Dose Route Start Last Admin Trade Name Freq PRN Reason Stop Dose Admin Sodium Chloride 1,000 mls @ 999 mls/hr 02/05/20 10:56 02/05/20 11:24 Normal Saline IV 02/05/20 11:56 999 mls/hr .BOLUS ONE Administration Iopamidol 100 ml 02/05/20 11:21 02/05/20 11:36 Isovue-300 (61%) IVPUSH 02/05/20 11:22 100 ml ONETIME ONE Administration - Re-Assessments/Exams Free Text/Narrative Re-Assessment/Exam: 02/05/20 11:14 The patient was advised of the lab result. A CT was ordered to further investigate the abdominal pain and the elevated WBC. Departure - Departure Time of Disposition: 12:49 Disposition: DC/Tfer to Acute Hospital 02 Condition: Fair Clinical Impression: Hepatosplenomegaly, Abdominal lymphadenopathy Leukocytosis Qualifiers: Leukocytosis type: lymphocytosis Qualified Code(s): D72.820 - Lymphocytosis ( symptomatic) - Discharge Information *PRESCRIPTION DRUG MONITORING PROGRAM REVIEWED*: Not Applicable *COPY OF PRESCRIPTION DRUG MONITORING REPORT IN PATIENT DYLON: Not Applicable Forms: Interfacility Transfer EMTALA Care Plan Goals: Discussed the patient's history, examination, lab and CT results with Dr. Castro. Dr. Castro accepted the patient for continued evaluation and further management as an inpatient at [facility] in [place]. The patient will be transported by his directly to [facility]. Sepsis Event Note - Focused Exam Vital Signs: Vital Signs Temp Pulse Resp BP Pulse Ox 02/05/20 10:13 36.2 C 84 16 117/69 99 Date Exam was Performed: 02/05/20 Time Exam was Performed: 12:49 - My Orders Last 24 Hours: My Active Orders 02/05/20 10:09 DRUG SCREEN URINE BIORAD [URCHEM] Stat UA RFX ELIZABETH AND CULT IF INDIC [URIN] Urgent 02/05/20 11:31 Blood Culture x2 Reflex Set [OM.PC] Stat 02/05/20 11:49 CULTURE BLOOD [BC] Stat 02/05/20 11:54 CULTURE BLOOD [BC] Stat - Assessment/Plan Last 24 Hours: My Active Orders 02/05/20 10:09 DRUG SCREEN URINE BIORAD [URCHEM] Stat UA RFX ELIZABETH AND CULT IF INDIC [URIN] Urgent 02/05/20 11:31 Blood Culture x2 Reflex Set [OM.PC] Stat 02/05/20 11:49 CULTURE BLOOD [BC] Stat 02/05/20 11:54 CULTURE BLOOD [BC] Stat
[2020-02-05 10:46] LABS: ANION GAP 12.7 mEq/L (7-13)
[2020-02-05] MEDS ORDERED: Sodium Chloride 0.9% 1,000 ML IV ONE (10:56)
[2020-02-05] MEDS ORDERED: Iopamidol 612 MG/ML 100 ML Bottle IVPUSH ONE (11:21)
== END 2020-02-05 13:15 ==
LOC: DL.ED 10:26
DX: R16.2 Hepatomegaly with splenomegaly, not elsewhere classified (principal); R59.0 Localized enlarged lymph nodes; D72.829 Elevated white blood cell count, unspecified; I10 Essential (primary) hypertension; E11.9 Type 2 diabetes mellitus without complications; Z79.84 Long term (current) use of oral hypoglycemic drugs; Z79.82 Long term (current) use of aspirin; Z79.899 Other long term (current) drug therapy; Z88.1 Allergy status to other antibiotic agents
CPT/HCPCS: 36415; 74177; 80053; 82150; 83605; 83690; 83735; 85025; 87040; 96360; 99285; J7030; Q9967

== ENCOUNTER 2020-04-26 14:23 | Emergency (ER) | payer BC, OTHER ==
[2020-04-26 14:31] VITALS: BP 178/95; PULSE 84
--- NOTE | 2020-04-26 15:07 | EDM.PDOC ---
ED HPI GENERAL MEDICAL PROBLEM - General Chief Complaint: ENT Problem Stated Complaint: [id number] SORE EAR Time Seen by Provider: 04/26/20 14:35 Source of Information: Reports: Patient, RN - History of Present Illness INITIAL COMMENTS - FREE TEXT/NARRATIVE: Patient is 50 year who present to the ER with ear pain(03/20) x 2 days. left ear pain came on suddenly. He denies any fever/chills/swimming activity. He admits to diminished hearing in the left ear but ok in the right ear. Denies any ear injury.He denies any drainage at this time. Left Ear Pain Score (Numeric/FACES): 7 - Related Data Allergies Allergy/AdvReac Type Severity Reaction Status Date / Time piperacillin [From Zosyn] Allergy nausea/emes Verified 04/26/20 14:33 is tazobactam [From Zosyn] Allergy nausea/emes Verified 04/26/20 14:33 is Home Meds: Home Meds Gabapentin [Neurontin] 300 mg PO TID 12/28/17 [History] Levothyroxine 25 mcg PO DAILY 12/28/17 [History] Lisinopril 20 mg PO DAILY 12/28/17 [History] glipiZIDE [Glucotrol XL] 10 mg PO BID 12/28/17 [History] metFORMIN HCl [Metformin HCl] 500 mg PO BIDMEALS 12/28/17 [History] Aspirin [Halfprin] 1 tab PO DAILY 03/08/18 [History] Sildenafil [Revatio] 20 mg PO DAILY PRN 03/08/18 [History] Fenofibrate Nanocrystallized [Fenofibrate] 145 mg PO DAILY 02/05/20 [History] amLODIPine Besylate [Amlodipine Besylate] 10 mg PO DAILY 02/05/20 [History] atorvaSTATin [Lipitor] 40 mg PO DAILY 02/05/20 [History] Past Medical History HEENT History: Reports: Impaired Vision Cardiovascular History: Reports: Hypertension Respiratory History: Reports: None Gastrointestinal History: Reports: None Genitourinary History: Reports: Acute Renal Failure Musculoskeletal History: Reports: Fracture Neurological History: Reports: None Psychiatric History: Reports: None Endocrine/Metabolic History: Reports: Diabetes, Type II Hematologic History: Reports: Hemochromatosis Immunologic History: Reports: None Oncologic (Cancer) History: Reports: None Dermatologic History: Reports: Decubitus Ulcer - Infectious Disease History Infectious Disease History: Reports: None - Past Surgical History Head Surgeries/Procedures: Reports: None Social & Family History - Family History Family Medical History: Noncontributory - Tobacco Use Smoking Status *Q: Never Smoker Second Hand Smoke Exposure: No - Caffeine Use Caffeine Use: Reports: Soda - Recreational Drug Use Recreational Drug Use: No - Living Situation & Occupation Living situation: Reports: , with Family Occupation: Employed ED ROS ENT - Review of Systems Review Of Systems: Comprehensive ROS is negative, except as noted in HPI. ED EXAM, ENT - Physical Exam Exam: See Below Exam Limited By: No Limitations General Appearance: Alert, Moderate Distress Ears: TM Obscured by Cerumen (left), Cerumen Impaction (left), Other (Diminished hearing on left ear) Nose: Normal Inspection, Normal Mucousa, No Blood Mouth/Throat: Normal Inspection, Normal Gums, Normal Lips, Normal Oropharynx, Normal Teeth Head: Atraumatic, Normocephalic Neck: Normal Inspection, Supple, Non-Tender, Full Range of Motion Respiratory/Chest: No Respiratory Distress, Lungs Clear, Normal Breath Sounds, No Accessory Muscle Use, Chest Non-Tender Cardiovascular: Normal Peripheral Pulses, Regular Rate, Rhythm, No Edema, No Gallop, No JVD, No Murmur, No Rub Neurological: Alert, Oriented Psychiatric: Normal Affect, Normal Mood Lymphatic: No Adenopathy Course - Vital Signs Last Recorded V/S: Last Vital Signs Temp 97.9 F 04/26/20 14:31 Pulse 84 04/26/20 14:31 Resp 16 04/26/20 14:31 BP 178/95 H 04/26/20 14:31 Pulse Ox 99 04/26/20 14:31 - Re-Assessments/Exams Free Text/Narrative Re-Assessment/Exam: Patient presents with left ear pain. Left impacted with wax. Cerumen irrigated with several attempts performed with moderate results. Patient reports relief in ear pressure but will like to continue trying to remove wax at home with Debrox. Encouraged to follow up in the clinic if not improvement with wax removal. Patient verbalized understanding. Departure - Departure Time of Disposition: 17:34 Disposition: Home, Self-Care 01 Condition: Good Clinical Impression: Cerumen impaction Qualifiers: Laterality: left Qualified Code(s): H61.22 - Impacted cerumen, left ear - Discharge Information Instructions: Earwax Buildup, Adult Forms: ED Department Discharge Sepsis Event Note (ED) - Evaluation Sepsis Screening Result: No Definite Risk - Focused Exam Vital Signs: Vital Signs Temp Pulse Resp BP Pulse Ox 04/26/20 14:31 97.9 F 84 16 178/95 H 99
== END 2020-04-26 17:41 | disposition home or self-care (01) ==
LOC: DL.ED 14:23
DX: H61.22 Impacted cerumen, left ear (principal); I10 Essential (primary) hypertension; E11.9 Type 2 diabetes mellitus without complications; Z88.0 Allergy status to penicillin; Z79.82 Long term (current) use of aspirin; Z79.899 Other long term (current) drug therapy
CPT/HCPCS: 69209; 99282

== ENCOUNTER 2021-02-21 03:23 | Emergency (ER) | payer SELFPAY ==
[2021-02-21 03:44] VITALS: BP 176/87; PULSE 89
--- NOTE | 2021-02-21 04:22 | EDM.PDOC ---
ED HPI GENERAL MEDICAL PROBLEM - General Chief Complaint: Genitourinary Problem Stated Complaint: CANT URINATE Time Seen by Provider: 02/21/21 04:12 Source of Information: Reports: Patient History Limitations: Reports: No Limitations - History of Present Illness INITIAL COMMENTS - FREE TEXT/NARRATIVE: This 50 yo male patient reports to the ED due to having burning with urination and hesitancy with urination. The patient reports his symptoms started over the past week. The patient reports he did speak with Hernandez Phelps regarding his symptoms and he was started on Macrobid. The patient has been taking the medication as prescribed, but his symptoms have been getting worse. The patient reports he was attempting to urinate this morning, but was unable to go while at home. The patient was able to urinate while in the ED. The patient reports his pain seems to be in his penis (burning all the time, but worse when he urinates). Onset Date: 02/16/21 Duration: Constant, Getting Worse Location: Reports: Other Quality: Reports: Ache, Burning Severity: Moderate Improves with: Reports: None Worsens with: Reports: None Context: Reports: Other Associated Symptoms: Reports: No Other Symptoms Perineal Area Pain Score (Numeric/FACES): 10 - Related Data Allergies Allergy/AdvReac Type Severity Reaction Status Date / Time piperacillin [From Zosyn] Allergy nausea/emes Verified 02/21/21 03:44 is tazobactam [From Zosyn] Allergy nausea/emes Verified 02/21/21 03:44 is Home Meds: Home Meds Gabapentin [Neurontin] 300 mg PO TID 12/28/17 [History] Levothyroxine 25 mcg PO DAILY 12/28/17 [History] Lisinopril 20 mg PO DAILY 12/28/17 [History] glipiZIDE [Glucotrol XL] 10 mg PO BID 12/28/17 [History] metFORMIN HCl [Metformin HCl] 500 mg PO BIDMEALS 12/28/17 [History] Aspirin [Halfprin] 1 tab PO DAILY 03/08/18 [History] Sildenafil [Revatio] 20 mg PO DAILY PRN 03/08/18 [History] Fenofibrate Nanocrystallized [Fenofibrate] 145 mg PO DAILY 02/05/20 [History] amLODIPine Besylate [Amlodipine Besylate] 10 mg PO DAILY 02/05/20 [History] atorvaSTATin [Lipitor] 40 mg PO DAILY 02/05/20 [History] Past Medical History HEENT History: Reports: Impaired Vision Cardiovascular History: Reports: Hypertension Respiratory History: Reports: None Gastrointestinal History: Reports: None Genitourinary History: Reports: Acute Renal Failure Musculoskeletal History: Reports: Fracture Neurological History: Reports: None Psychiatric History: Reports: None Endocrine/Metabolic History: Reports: Diabetes, Type II Hematologic History: Reports: Hemochromatosis Immunologic History: Reports: None Oncologic (Cancer) History: Reports: None Dermatologic History: Reports: Decubitus Ulcer - Infectious Disease History Infectious Disease History: Reports: None - Past Surgical History Head Surgeries/Procedures: Reports: None Social & Family History - Family History Family Medical History: No Pertinent Family History - Tobacco Use Tobacco Use Status *Q: Never Tobacco User - Caffeine Use Caffeine Use: Reports: None - Recreational Drug Use Recreational Drug Use: No - Living Situation & Occupation Living situation: Reports: , with Family Occupation: Employed ED ROS GENERAL - Review of Systems Review Of Systems: Comprehensive ROS is negative, except as noted in HPI. ED EXAM, RENAL/ - Physical Exam Exam: See Below Exam Limited By: No Limitations General Appearance: Alert, WD/WN, No Apparent Distress Eye Exam: Bilateral Eye: EOMI, Normal Inspection, PERRL Ears: Normal External Exam, Normal Canal, Hearing Grossly Normal, Normal TMs Nose: Normal Inspection, Normal Mucosa, No Blood Throat/Mouth: Normal Inspection, Normal Lips, Normal Teeth, Normal Gums, Normal Oropharynx, Normal Voice, No Airway Compromise Head: Atraumatic, Normocephalic Neck: Normal Inspection, Supple, Non-Tender, Full Range of Motion Respiratory/Chest: No Respiratory Distress, Lungs Clear, Normal Breath Sounds, No Accessory Muscle Use, Chest Non-Tender Cardiovascular: Normal Peripheral Pulses, Regular Rate, Rhythm, No Edema, No Gallop, No JVD, No Murmur, No Rub GI/Abdominal: Normal Bowel Sounds, Soft, Non-Tender, No Organomegaly, No Distention, No Abnormal Bruit, No Mass Rectal (Males) Exam: Deferred Back Exam: Normal Inspection, Full Range of Motion, NT Extremities: Normal Inspection, Normal Range of Motion, Non-Tender, Normal Capillary Refill, No Pedal Edema Neurological: Alert, Oriented, CN II-XII Intact, Normal Cognition, Normal Gait, Normal Reflexes, No Motor/Sensory Deficits Psychiatric: Normal Affect, Normal Mood Skin Exam: Warm, Dry, Intact, Normal Color, No Rash Lymphatic: No Adenopathy Course - Vital Signs Last Recorded V/S: Last Vital Signs Temp 98.3 F 02/21/21 03:43 Pulse 89 02/21/21 03:43 Resp 16 02/21/21 03:43 BP 176/87 H 02/21/21 03:43 Pulse Ox 99 02/21/21 03:43 - Orders/Labs/Meds Orders: Active Orders 24 hr Category Date Time Status CULTURE BLOOD [BC] Stat Lab 02/21/21 04:11 Ordered CULTURE URINE [RM] Urgent Lab 02/21/21 04:20 Received Labs: Laboratory Tests 02/21/21 02/21/21 02/21/21 Range/Units 04:20 04:20 04:20 WBC 8.3 (5.0-10.0) 10^3/uL RBC 4.48 L (4.6-6.2) 10^6/uL Hgb 15.4 (14.0-18.0) g/dL Hct 42.3 (40.0-54.0) % MCV 94.4 D (80-100) fL MCH 34.4 H (27.0-34.0) pg MCHC 36.4 H (33.0-35.0) g/dL Plt Count 188 (150-450) 10^3/uL Neut % (Auto) 72.4 (42.2-75.2) % Lymph % (Auto) 17.3 L (20.5-50.1) % [place] % (Auto) 8.7 H (2-8) % Eos % (Auto) 1.5 (1.0-3.0) % Baso % (Auto) 0.1 (0.0-1.0) % Sodium 138 (136-145) mmol/L Potassium 3.5 (3.5-5.1) mmol/L Chloride 101 (98-107) mmol/L Carbon Dioxide 29 (21-32) mmol/L Anion Gap 11.5 (7-13) mEq/L BUN 12 (7-18) mg/dL Creatinine 0.85 (0.70-1.30) mg/dL Est Cr Clr Drug Dosing 120.88 mL/min Estimated GFR (MDRD) > 60 BUN/Creatinine Ratio 14.1 (No establ ref range) Glucose 272 H (70-99) mg/dL Lactic Acid (0.4-2.0) mmol/L Calcium 8.5 (8.5-10.1) mg/dL Total Bilirubin 1.4 H (0.2-1.0) mg/dL AST 24 (15-37) U/L ALT 39 (16-63) U/L Alkaline Phosphatase 92 (46-116) U/L Total Protein 6.6 (6.4-8.2) g/dL Albumin 3.4 (3.4-5.0) g/dL Globulin 3.2 Albumin/Globulin Ratio 1.1 Urine Color Yellow (YELLOW) Urine Appearance Slightly cloudy (CLEAR) Urine pH 5.5 (5.0-9.0) Ur Specific Martin 1.020 (1.005-1.030) Urine Protein Negative (NEGATIVE) Urine Glucose (UA) 500 H (NEGATIVE) Urine Ketones Negative (NEGATIVE) Urine Occult Blood Moderate H (NEGATIVE) Urine Nitrite Negative (NEGATIVE) Urine Bilirubin Negative (NEGATIVE) Urine Urobilinogen 0.2 (0.2-1.0) mg/dL Ur Leukocyte Esterase Small H (NEGATIVE) Urine RBC 0-5 /HPF Urine WBC 30-40 H (0-5/HPF) /HPF Ur Epithelial Cells Occasional (NOT SEEN) /HPF Urine Bacteria Moderate H (0-FEW/HPF) /HPF 06/13/ Range/Units 04:20 WBC (5.0-10.0) 10^3/uL RBC (4.6-6.2) 10^6/uL Hgb (14.0-18.0) g/dL Hct (40.0-54.0) % MCV (80-100) fL MCH (27.0-34.0) pg MCHC (33.0-35.0) g/dL Plt Count (150-450) 10^3/uL Neut % (Auto) (42.2-75.2) % Lymph % (Auto) (20.5-50.1) % [place] % (Auto) (2-8) % Eos % (Auto) (1.0-3.0) % Baso % (Auto) (0.0-1.0) % Sodium (136-145) mmol/L Potassium (3.5-5.1) mmol/L Chloride (98-107) mmol/L Carbon Dioxide (21-32) mmol/L Anion Gap (7-13) mEq/L BUN (7-18) mg/dL Creatinine (0.70-1.30) mg/dL Est Cr Clr Drug Dosing mL/min Estimated GFR (MDRD) BUN/Creatinine Ratio (No establ ref range) Glucose (70-99) mg/dL Lactic Acid 0.8 (0.4-2.0) mmol/L Calcium (8.5-10.1) mg/dL Total Bilirubin (0.2-1.0) mg/dL AST (15-37) U/L ALT (16-63) U/L Alkaline Phosphatase (46-116) U/L Total Protein (6.4-8.2) g/dL Albumin (3.4-5.0) g/dL Globulin Albumin/Globulin Ratio Urine Color (YELLOW) Urine Appearance (CLEAR) Urine pH (5.0-9.0) Ur Specific Martin (1.005-1.030) Urine Protein (NEGATIVE) Urine Glucose (UA) (NEGATIVE) Urine Ketones (NEGATIVE) Urine Occult Blood (NEGATIVE) Urine Nitrite (NEGATIVE) Urine Bilirubin (NEGATIVE) Urine Urobilinogen (0.2-1.0) mg/dL Ur Leukocyte Esterase (NEGATIVE) Urine RBC /HPF Urine WBC (0-5/HPF) /HPF Ur Epithelial Cells (NOT SEEN) /HPF Urine Bacteria (0-FEW/HPF) /HPF Meds: Medications Discontinued Medications Generic Name Dose Route Start Last Admin Trade Name Freq PRN Reason Stop Dose Admin Ciprofloxacin 500 mg 02/21/21 05:17 Ciprofloxacin 500 Mg Tab PO 02/21/21 05:18 ONETIME ONE Departure - Departure Time of Disposition: 05:18 Disposition: Home, Self-Care 01 Condition: Fair Clinical Impression: UTI, Urinary tract infectious disease - Discharge Information *PRESCRIPTION DRUG MONITORING PROGRAM REVIEWED*: Not Applicable *COPY OF PRESCRIPTION DRUG MONITORING REPORT IN PATIENT DYLON: Not Applicable Instructions: Urinary Tract Infection, Adult, [id number] Forms: ED Department Discharge Care Plan Goals: The patient was advised of the examination and lab results during the visit. The patient was given an oral dose of Cipro (500 mg) while in the ED. The patient was discharged with a script for Cipro (500 mg) #10 to take 1 by mouth 2 times per day for 5 days. If the patient has any additional symptoms or concerns, the patient should either return to the emergency department or visit his primary care facility. Sepsis Event Note (ED) - Evaluation Sepsis Screening Result: No Definite Risk - Focused Exam Vital Signs: Vital Signs Temp Pulse Resp BP Pulse Ox 02/21/21 03:43 98.3 F 89 16 176/87 H 99 - My Orders Last 24 Hours: My Active Orders 02/21/21 04:11 CULTURE BLOOD [BC] Stat 02/21/21 04:20 CULTURE URINE [RM] Urgent - Assessment/Plan Last 24 Hours: My Active Orders 02/21/21 04:11 CULTURE BLOOD [BC] Stat 02/21/21 04:20 CULTURE URINE [RM] Urgent
[2021-02-21 04:46] LABS: ANION GAP 11.5 mEq/L (7-13); CHLORIDE,CL 101 mmol/L (98-107); SODIUM,NA 138 mmol/L (136-145)
[2021-02-21] MEDS ORDERED: Ciprofloxacin 500 MG Tab PO ONE (05:17)
== END 2021-02-21 05:29 | disposition home or self-care (01) ==
LOC: DL.ED 03:23
DX: N39.0 Urinary tract infection, site not specified (principal); I10 Essential (primary) hypertension; E11.9 Type 2 diabetes mellitus without complications; Z79.84 Long term (current) use of oral hypoglycemic drugs; Z79.82 Long term (current) use of aspirin; Z79.899 Other long term (current) drug therapy; Z88.1 Allergy status to other antibiotic agents
CPT/HCPCS: 36415; 80053; 81001; 83605; 85025; 87040; 87086; 87088; 87186; 99283; A9270-GY

== ENCOUNTER 2021-03-21 18:45 | Emergency (ER) | payer MEDICAID ==
[2021-03-21 19:25] VITALS: BP 167/82; PULSE 93
--- NOTE | 2021-03-21 19:32 | EDM.PDOC ---
ED HPI GENERAL MEDICAL PROBLEM - General Chief Complaint: Genitourinary Problem Stated Complaint: CATHETER REMOVAL Time Seen by Provider: 03/21/21 19:10 Source of Information: Reports: Patient, Family History Limitations: Reports: No Limitations - History of Present Illness INITIAL COMMENTS - FREE TEXT/NARRATIVE: ED with c/o sebastian catheter irritation pain, constant lmilky leaking around catheter. No fever chills or back pain. Roberts not see urology until . Catheter palced due to retention and enlarged prostate. IDDM. Penis Pain Score (Numeric/FACES): 9 - Related Data Allergies Allergy/AdvReac Type Severity Reaction Status Date / Time piperacillin [From Zosyn] Allergy nausea/emes Verified 03/21/21 19:27 is tazobactam [From Zosyn] Allergy nausea/emes Verified 03/21/21 19:27 is Home Meds: Home Meds Gabapentin [Neurontin] 300 mg PO TID 12/28/17 [History] Levothyroxine 25 mcg PO DAILY 12/28/17 [History] Lisinopril 20 mg PO DAILY 12/28/17 [History] glipiZIDE [Glucotrol XL] 10 mg PO BID 12/28/17 [History] metFORMIN HCl [Metformin HCl] 500 mg PO BIDMEALS 12/28/17 [History] Aspirin [Halfprin] 1 tab PO DAILY 03/08/18 [History] Sildenafil [Revatio] 20 mg PO DAILY PRN 03/08/18 [History] Fenofibrate Nanocrystallized [Fenofibrate] 145 mg PO DAILY 02/05/20 [History] amLODIPine Besylate [Amlodipine Besylate] 10 mg PO DAILY 02/05/20 [History] atorvaSTATin [Lipitor] 40 mg PO DAILY 02/05/20 [History] Past Medical History HEENT History: Reports: Impaired Vision Cardiovascular History: Reports: Hypertension Respiratory History: Reports: None Gastrointestinal History: Reports: None Genitourinary History: Reports: Acute Renal Failure Musculoskeletal History: Reports: Fracture Neurological History: Reports: None Psychiatric History: Reports: None Endocrine/Metabolic History: Reports: Diabetes, Type II Hematologic History: Reports: Hemochromatosis Immunologic History: Reports: None Oncologic (Cancer) History: Reports: None Dermatologic History: Reports: Decubitus Ulcer - Infectious Disease History Infectious Disease History: Reports: None - Past Surgical History Head Surgeries/Procedures: Reports: None Social & Family History - Family History Family Medical History: No Pertinent Family History - Caffeine Use Caffeine Use: Reports: None - Living Situation & Occupation Living situation: Reports: , with Family Occupation: Employed ED ROS GENERAL - Review of Systems Review Of Systems: Comprehensive ROS is negative, except as noted in HPI. ED EXAM, RENAL/ - Physical Exam Exam: See Below Exam Limited By: No Limitations General Appearance: Alert, No Apparent Distress Eye Exam: Bilateral Eye: EOMI Ears: Normal External Exam, Hearing Grossly Normal Nose: Normal Inspection Throat/Mouth: Normal Inspection, Perioral Cyanosis Head: Atraumatic Neck: Normal Inspection Respiratory/Chest: No Respiratory Distress, Lungs Clear, Normal Breath Sounds Cardiovascular: Normal Peripheral Pulses, Regular Rate, Rhythm GI/Abdominal: Normal Bowel Sounds, Soft, Non-Tender (Male) Exam: Other Course - Vital Signs Last Recorded V/S: Last Vital Signs Temp 96.7 F L 03/21/21 19:05 Pulse 93 03/21/21 19:05 Resp 18 03/21/21 19:05 BP 167/82 H 03/21/21 19:05 Pulse Ox 96 03/21/21 19:05 - Re-Assessments/Exams Free Text/Narrative Re-Assessment/Exam: 03/21/21 21:21 Requests sebastian not be replaced. Requesting trial without. Discussed risk of continued retention, initial difficulty voiding again since 3 weeks with sebastian or since size of prostate on previous CT that may encounter some difficulty with replacing sebastian after extended period without it. Patient desire to proced with out folley. Has not voded since removal intake of water appropriate. Bladder scan 170ml, No effort to attemtp yet. Desire to go heme. Instructed to return if pain or bladder fullness. Departure - Departure Time of Disposition: 21:06 Disposition: Home, Self-Care 01 Condition: Good Clinical Impression: Enlarged prostate, Urinary retention Sebastian catheter problem Qualifiers: Encounter type: initial encounter Qualified Code(s): T83.9XXA - Unspecified complication of genitourinary prosthetic device, implant and graft, initial encounter - Discharge Information *PRESCRIPTION DRUG MONITORING PROGRAM REVIEWED*: No *COPY OF PRESCRIPTION DRUG MONITORING REPORT IN PATIENT DYLON: No Instructions: Acute Urinary Retention, Male, [id number] Forms: ED Department Discharge Additional Instructions: Follow up clinic with PCP this week if difficulty or unable to pass urine tonight, bladder discomfort return to have catheter replaced drink lots of fluids Sepsis Event Note (ED) - Evaluation Sepsis Screening Result: No Definite Risk - Focused Exam Vital Signs: Vital Signs Temp Pulse Resp BP Pulse Ox 03/21/21 19:05 96.7 F L 93 18 167/82 H 96
== END 2021-03-21 21:35 | disposition home or self-care (01) ==
LOC: DL.ED 18:45
DX: T83.098A Other mechanical complication of other urinary catheter, initial encounter (principal); N40.1 Benign prostatic hyperplasia with lower urinary tract symptoms; R33.8 Other retention of urine; I10 Essential (primary) hypertension; E11.9 Type 2 diabetes mellitus without complications; Z88.0 Allergy status to penicillin; Z79.82 Long term (current) use of aspirin; Z79.84 Long term (current) use of oral hypoglycemic drugs; Z79.899 Other long term (current) drug therapy
CPT/HCPCS: 99283